=== PATIENT | male | born 1985 | race Caucasian/White ===

== ENCOUNTER 2017-02-15 13:19 | Emergency (ER) | payer OTHER, MEDICAID | END 2017-02-15 14:55 | disposition home or self-care (01) | LOC: SED 13:19 | DX: F11.10 Opioid abuse, uncomplicated (principal); J30.2 Other seasonal allergic rhinitis; J32.9 Chronic sinusitis, unspecified; F17.200 Nicotine dependence, unspecified, uncomplicated | CPT/HCPCS: 99283 ==